=== PATIENT | male | born 1965 | race American Indian/Alaskan Native ===

== ENCOUNTER 2021-09-26 07:47 | Day surgery (SDC) | payer OTHER ==
[~2021-09-26 07:47] MED LIST: SODIUM CHLORIDE 0.9% 1000 ML 1,000 ML IV SCH
[2021-09-26] MEDS ORDERED: propofoL 200 MG/20 ML VIAL IV ONE ×2 (09:15→09:25)
--- NOTE | 2021-09-26 09:27 | Anesthesia Consultation ---
Anesthesia Consult and Med Hx Date of service: 09/26/21 - Airway Anesthetic Teeth Evaluation: Good (veneers upper incisors) ROM Head & Neck: Adequate Mental/Hyoid Distance: Adequate Mallampati Class: Class III Intubation Access Assessment: Possibly Difficult - Pre-Operative Health Status ASA Pre-Surgery Classification: ASA3 Proposed Anesthetic Plan: MAC - Pulmonary Hx Smoking: No Hx Respiratory Symptoms: No (hx DVT/PE on eliquis (last dose 2 days ago)) - Cardiovascular System Hx Hypertension: Yes Hx Heart Attack/AMI: No Hx Cardia Arrhythmia: No - Central Nervous System CVA: No - Endocrine Hx Renal Disease: No Hx Liver Disease: No Hx Insulin Dependent Diabetes: No Hx Non-Insulin Dependent Diabetes: No Hx Thyroid Disease: No - Additional Comments Anesthesia Medical History Comments: Preop cardiology eval on chart. RV dysfunction noted (TTE report not included). No signs/symptoms HF decompensation and >4mets functional capacity.
--- NOTE | 2021-09-26 09:28 | Anesthesia Day of Surgery ---
Anesthesia Day of Surgery - Day of Surgery Patient Examined: Yes Patient H&P Reviewed: Yes Patient is NPO: Yes
--- NOTE | 2021-09-26 09:51 | Short Stay Summary ---
Short Stay Documentation Date of service: 09/26/21 Narrative H&P: The patient presents for his first screening colonoscopy, average risk profile. - History Past Medical History: diabetes, hypertension, pulmonary embolism Past Surgical History: No surgical history Social history: no significant social history - Allergies and Medications Current Medications: Allergies No Known Allergies Allergy (Verified 09/24/21 13:13) Home Medications Medication Instructions Recorded Confirmed Last Taken Type Amlodipine Besylate 10 mg PO DAILY 09/24/21 09/24/21 Unknown History Apixaban 5 mg PO DAILY 09/24/21 09/24/21 Unknown History Atenolol 25 mg PO DAILY 09/24/21 09/24/21 Unknown History Simvastatin 20 mg PO DAILY 09/24/21 09/24/21 Unknown History metFORMIN 500 mg PO BID 09/24/21 09/24/21 Unknown History Active Medications Sodium Chloride (Nacl 0.9% 1000 Ml) 1,000 mls @ 50 mls/hr IV DIRECT MERE - Physical exam General appearance: no acute distress, well-nourished Integumentary: no rash, no growths, no abnormal pigmentation HEENT: Atraumatic, PERRLA, EOMI, Mucous membr. moist/pink Lungs: Clear to auscultation Breasts: deferred Heart: Regular rate, Normal S1, Normal S2, No murmurs Gastrointestinal: normoactive bowel sounds, no tenderness, no distended, no masses, no organomegaly Male Genitourinary: deferred Rectal Exam: normal exam-external/orifice, normal rectal tone, no mass Extremities: no ischemia, pulses intact, pulses symmetrical, No edema, normal temperature, normal color, Full ROM Neurological: Normal gait, Normal speech, Strength at 5/5 X4 ext, Normal tone, Sensation intact, Cranial nerves 3-12 NL - Brief post op/procedure progress note Date of procedure: 09/26/21 Findings: see dictation Estimated blood loss: none Pathology: list (2 ascending polyps, 2 transverse colon polyps, 1 sigmoid polyp) Specimen disposition: to lab Condition: stable - Disposition Condition at discharge: Good Disposition: 01 HOME / SELF CARE / HOMELESS - Discharge Diagnoses (1) Colon polyps Status: Acute Short Stay Discharge Plan Activity: other (no driving for 24 hours. Restart Eliquis in 48 hours) Weight Bearing Status: Full Weight Bearing Diet: regular Follow up with: PRIMARY CARE, [Primary Care Provider] - 7 Days
--- NOTE | 2021-09-26 10:00 | Operative Report ---
Operative Report Operative Report: Date of procedure: 09/26/2021 Preprocedure diagnosis: Colon cancer screening, no prior studies. Average risk profile. Post procedure diagnosis: 5 colon polyps Procedure: Colonoscopy to the cecum with hot snare polypectomies, cold snare polypectomy and cold biopsy polypectomies. Endoscopist: Dr. Benitez Anesthesia: Monitored anesthesia care per anesthesia department Estimated blood loss: 0 Medications: Monitored anesthesia care. See separate report by anesthesia for details. After careful discussion of the nature and purpose of the procedure as well as details of the technique risks benefits and alternatives the patient gave consent. Please see recent history and physical from the office. The patient was placed in the left lateral decubitus position and medicated per anesthesia. A rectal exam was performed sphincter tone was normal there were no masses palpable. The Astechn 570 scope was passed transanally and advanced under continuous direct vision without difficulty to the cecum. The colon was well prepared. The cecum was normal. The ascending colon revealed 2 polyps. An 8 mm semipedunculated polyp was removed with the hot snare and cautery. A smaller, diminutive polyp was removed with cold biopsy forcep technique. The transverse colon revealed 2 polyps one of which was 7 mm in size, semipedunculated and removed by hot snare. A smaller, 4 mm polyp was removed with a cold snare. The descending colon was normal. The sigmoid colon revealed a 5 mm polyp which was removed with 2 bites of the cold forceps. The rectum was normal on forward and retroflexed views. The procedure was well-tolerated overall and the patient was observed in recovery. Conclusions: 2 ascending colon polyps, 2 transverse colon polyps and one sigmoid polyp. Plan: Await pathology. Repeat colonoscopy in the future depending on the pathology between 3 years and 5 years. Signed electronically: Neto Benitez M.D.
--- NOTE | 2021-09-26 10:45 | Post Anesthesia Evaluation ---
- Post Anesthesia Evaluation Patient Participated: Yes Airway Patent: Yes Stable Respiratory Function: Yes Nausea/Vomiting: No Temp > 96.8F: Yes Pain Manageable: Yes Adequeate Hydration: Yes Anesthesia Complications: No
[2021-09-26 11:39] VITALS: BP 135/86
== END 2021-09-26 10:20 | disposition home or self-care (01) ==
LOC: GIO 07:47
PROVIDERS: ATTEND Internal Medicine Gastroenterology
DX: Z12.11 Encounter for screening for malignant neoplasm of colon (principal); D12.3 Benign neoplasm of transverse colon; D12.5 Benign neoplasm of sigmoid colon; K63.89 Other specified diseases of intestine; I10 Essential (primary) hypertension; Z79.84 Long term (current) use of oral hypoglycemic drugs; Z79.899 Other long term (current) drug therapy; Z98.890 Other specified postprocedural states
CPT/HCPCS: 45380; 45385; 82962; 88305; J2704; J7030; J7120; Q0162